=== PATIENT | female | born 1960 | race Two or more races ===

== ENCOUNTER 2017-09-05 07:13 | Outpatient (CLI) | payer OTHER | END 2017-09-05 09:16 | disposition home or self-care (01) | LOC: NUCLEAR 07:13 | DX: I11.9 Hypertensive heart disease without heart failure (principal); I20.8 Other forms of angina pectoris; R73.02 Impaired glucose tolerance (oral) | CPT/HCPCS: 78452; 93017; A9500 ==

== ENCOUNTER 2017-12-10 18:44 | Emergency (ER) | payer OTHER ==
[~2017-12-10] VITALS: Ht 154.9 cm; Wt 57.2 kg
[2017-12-10] MEDS ORDERED: CLONAZEPAM2 MG (19:25)
[2017-12-10] MEDS ORDERED: AMBIEN5 MG (19:26)
== END 2017-12-10 20:31 | disposition home or self-care (01) ==
LOC: ER 18:44
DX: R07.89 Other chest pain (principal); F41.1 Generalized anxiety disorder; F43.0 Acute stress reaction

== ENCOUNTER 2020-01-30 18:57 | Emergency (ER) | payer OTHER ==
[~2020-01-30] VITALS: Ht 152.4 cm; Wt 54.4 kg
[~2020-01-30 18:57] MED LIST: AMBIEN5 MG; CLONAZEPAM2 MG
[2020-01-30] MEDS ORDERED: NYSTATIN ORAL SUSP (19:15)
[2020-01-30] MEDS ORDERED: GILTUSS (19:16)
== END 2020-01-30 20:33 | disposition home or self-care (01) ==
LOC: ER 18:57
DX: K12.1 Other forms of stomatitis (principal)

== ENCOUNTER 2023-11-14 08:32 | Outpatient (CLI) | payer OTHER ==
[~2023-11-14 08:32] MED LIST changes: +GILTUSS; +NYSTATIN ORAL SUSP
== END 2023-11-14 08:36 | disposition home or self-care (01) ==
LOC: NUCLEAR 08:32
PROVIDERS: ATTEND Internal Medicine Cardiovascular Disease
DX: I87.2 Venous insufficiency (chronic) (peripheral) (principal)

== ENCOUNTER 2023-11-15 09:24 | Outpatient (CLI) | payer OTHER | END 2023-11-15 09:25 | disposition home or self-care (01) | LOC: NUCLEAR 09:24 | PROVIDERS: ATTEND Internal Medicine Cardiovascular Disease | DX: I73.9 Peripheral vascular disease, unspecified (principal) ==